=== PATIENT | female | born 1960 | race African-American/Black ===

== ENCOUNTER 2017-01-14 16:51 | Emergency (ER) | payer OTHER ==
[~2017-01-14] VITALS: Ht 167.6 cm; Wt 103.0 kg
[~2017-01-14 16:51] MED LIST: ACETAMINOPHEN500 M3 ORAL; AZITHROMYCIN250 MG ORAL; BACTRIM-DS1 EA ORAL; CEPHALEXIN500 MG ORAL; FERROUS SULFAT325 MG ORAL; FUROSEMIDE20 M1 ORAL; IBUPROFEN600 MG ORAL; IBUPROFEN800 MG ORAL; KEFLEX500 MG ORAL; MACROBID100 MG ORAL; NAPROSYN500 M1 ORAL; NKM; NORCO 5-325 TA1 EACH ORAL; NORCO 5/3251 TAB GT; NYSTATIN15 G1 TP; ROBAXIN500 MG PO; TRAMADOL HCL50 MG ORAL; TYLENOL EXTRA500 MG ORAL; UNOBMED; VICODIN; VICODIN ES 7.51 EACH ORAL; vicodin
[2017-01-14 17:07] VITALS: BP 151/98
[2017-01-14] MEDS ORDERED: Albuterol ud Inhalation HHN ONE (17:30)
[2017-01-14] MEDS ORDERED: Ipratropium 0.02% Inh Soln 2.5ml UD HHN ONE (17:30)
[2017-01-14 17:55] LABS: LYMPHOCYTES % (AUTO) 18.5 % (20.0-45.0); MEAN CORPUSCULAR HEMOGLOBIN 28.1 PG (27.0-31.0); MEAN CORPUSCULAR HGB CONC 31.7 G/DL (32.0-36.0); MEAN CORPUSCULAR VOLUME 89 FL (80-99); MEAN PLATELET VOLUME 7.9 FL (6.5-10.1); MONOCYTES % (AUTO) 6.4 % (1.0-10.0); PLATELET COUNT 252 K/UL (150-450); RED BLOOD COUNT 3.69 M/UL (4.20-5.40); RED CELL DISTRIBUTION WIDTH 16.4 % (11.6-14.8); WHITE BLOOD COUNT 6.7 K/UL (4.8-10.8)
[2017-01-14 18:20] LABS: ALANINE AMINOTRANSFERASE 15 U/L (3-33); ALBUMIN/GLOBULIN RATIO 1.6 (1.0-2.7); ANION GAP 16 (5-15); ASPARTATE AMINO TRANSFERASE 23 U/L (5-40); CALCIUM 9.5 mg/dL (8.6-10.2); CARBON DIOXIDE 26 mEQ/L (20-30); CHLORIDE 98 mEQ/L (98-107); CREATININE 0.6 mg/dL (0.5-0.9); GLOMERULAR FILTRATION RATE > 60 mL/min (>60); HEMOLYSIS 33; POTASSIUM 4.1 mEQ/L (3.4-4.9); SODIUM 140 mEQ/L (135-145); TOTAL PROTEIN 7.6 g/dL (6.6-8.7)
[2017-01-14 18:21] LABS: TROPONIN I < 0.30 ng/mL (<=0.30)
[2017-01-14] MEDS ORDERED: Ketorolac 30mg Inj IV ONE (18:30)
[2017-01-14 18:31] LABS: CKMB 5.6 ng/mL (< 3.8)
[2017-01-14 19:45] VITALS: BP 147/88
--- NOTE | 2017-01-14 22:40 | Emergency Room Report ---
History of Present Illness General Chief Complaint: Pain Source: Patient, EMS Present Illness HPI 56-year-old female presents ED complaining of generalized pain x2 days. Notes pain in the arms and legs and chest and hips. Pain is 8/10, throbbing, nonradiating. No aggravating or relieving factors. Patient is well-known to [facility] [place] has been here multiple times for pain-related issues. Has history of chronic hip pain. Patient states she's had multiple falls recently and is concerned about her hips. Patient states it is too painful to walk. Denies shortness of breath. No aggravating relieving factors. Denies any ear associated symptoms Allergies: Coded Allergies: NO KNOWN ALLERGIES (Unverified Allergy, Unknown, 08/21/15) NO KNOWN DRUG ALLERGIES (Unverified Allergy, Unknown, 02/11/15) Patient History Past Medical History: HTN Past Surgical History: none Pertinent Family History: none Social History: Denies: alcohol use, drug use, smoking Now: No Immunizations: UTD Reviewed Nursing Documentation: PMH: Agreed, PSxH: Agreed Nursing Documentation-PMH Hx Hypertension: Yes Hx Cancer: No Hx Neurological Problems: No Hx Cerebrovascular Accident: No - BILATERAL HIP PAIN Review of Systems All Other Systems: negative except mentioned in HPI Physical Exam Vital Signs Date Time Temp Pulse Resp B/P Pulse Ox O2 Delivery O2 Flow Rate FiO2 01/14/17 16:51 78 18 151/98 100 Room Air 01/14/17 19:45 98.6 Sp02 EP Interpretation: reviewed, normal General Appearance: no apparent distress, alert, GCS 15, non-toxic, obese Head: normocephalic Eyes: bilateral eye PERRL, bilateral eye normal inspection ENT: normal ENT inspection Neck: normal inspection Respiratory: chest non-tender, lungs clear, normal breath sounds, speaking full sentences Cardiovascular #1: regular rate, rhythm, no edema Gastrointestinal: normal bowel sounds, non tender, soft, non-distended, no guarding, no rebound Rectal: deferred Genitourinary: no CVA tenderness Musculoskeletal: tender - pelvis Neurologic: alert, oriented x3, responsive, motor strength/tone normal, sensory intact, speech normal Psychiatric: normal inspection Skin: normal inspection Lymphatic: normal inspection Medical Decision Making Diagnostic Impression: Primary Impression: Chronic pain Qualified Codes: G89.29 - Other chronic pain Additional Impression: Osteoarthritis, hip, bilateral Qualified Codes: M16.0 - Bilateral primary osteoarthritis of hip ER Course Hospital Course 56-year-old F presents to ED with chest and hip pain. h/o chronic hip pain Differential diagnosis includes-appendicitis, cholecystitis, small bowel obstruction, gastritis, Clinical course Patient placed on stretcher. After initial history and physical I ordered labs , IV fluids, EKG, CXR, pain medications and CT scan Labs - no leukocytosis, electrolytes ok, troponins negative, LFTs normal, UA unremarkable EKG - NSR, no acute changes CXR unremarkable CT scan shows no acute fx, DJD noted Upon reassessment, patient states pain has improved. Given improvement in symptoms and lack of acute findings, I believe patient can be safely discharged to home. Patient agrees with plan I feel this is a highly complex case requiring extensive working including EKG/ Rhythm strip, Xray/CT/US, Blood/urine lab work, repeat exams while in ED, and administration of strong opiates/narcotics for pain control, admission to hospital or close patient follow up. Diagnosis - chronic pain, bilateral hip osteoarthritis Stable and discharged to home. Followup with PMD. Return to ED if symptoms recur or worsen Labs Test 01/14/17 17:30 White Blood Count 6.7 K/UL (4.8-10.8) Red Blood Count 3.69 M/UL (4.20-5.40) Hemoglobin 10.4 G/DL (12.0-16.0) Hematocrit 32.8 % (37.0-47.0) Mean Corpuscular Volume 89 FL (80-99) Mean Corpuscular Hemoglobin 28.1 PG (27.0-31.0) Mean Corpuscular Hemoglobin Concent 31.7 G/DL (32.0-36.0) Red Cell Distribution Width 16.4 % (11.6-14.8) Platelet Count 252 K/UL (150-450) Mean Platelet Volume 7.9 FL (6.5-10.1) Neutrophils (%) (Auto) 71.0 % (45.0-75.0) Lymphocytes (%) (Auto) 18.5 % (20.0-45.0) Monocytes (%) (Auto) 6.4 % (1.0-10.0) Eosinophils (%) (Auto) 2.0 % (0.0-3.0) Basophils (%) (Auto) 2.0 % (0.0-2.0) Sodium Level 140 mEQ/L (135-145) Potassium Level 4.1 mEQ/L (3.4-4.9) Chloride Level 98 mEQ/L (98-107) Carbon Dioxide Level 26 mEQ/L (20-30) Anion Gap 16 (5-15) Blood Urea Nitrogen 12 mg/dL (7-23) Creatinine 0.6 mg/dL (0.5-0.9) Estimat Glomerular Filtration Rate > 60 mL/min (>60) Glucose Level 114 mg/dL (74-106) Calcium Level 9.5 mg/dL (8.6-10.2) Total Bilirubin < 0.2 mg/dL (0.0-1.2) Aspartate Amino Transf (AST/SGOT) 23 U/L (5-40) Alanine Aminotransferase (ALT/SGPT) 15 U/L (3-33) Alkaline Phosphatase 110 U/L (35-104) Total Creatine Kinase 287 U/L (26-140) Creatine Kinase MB 5.6 ng/mL (< 3.8) Creatine Kinase MB Relative Index 1.9 Troponin I < 0.30 ng/mL (<=0.30) Pro-B-Type Natriuretic Peptide 148 pg/mL (0-125) Total Protein 7.6 g/dL (6.6-8.7) Albumin 4.7 g/dL (3.5-5.2) Globulin 2.9 g/dL Albumin/Globulin Ratio 1.6 (1.0-2.7) EKG Diagnostic Results Rate: normal Rhythm: NSR ST Segments: no acute changes ASA given to the pt in ED: No Rhythm Strip Diag. Results EP Interpretation: yes Rhythm: NSR, no PVC's, no ectopy Chest X-Ray Diagnostic Results EP Interpretation: Yes Findings: no consolidation, no effusion, no pneumothorax, no acute cardiopulmonary disease Number of Views: 1 CT/MRI/US Diagnostic Results CT/MRI/US Diagnostic Results : Imaging Test Ordered: CT Pelvis Impression DJD noted bilaterally. no acute fx Last Vital Signs Date Time Temp Pulse Resp B/P Pulse Ox O2 Delivery O2 Flow Rate FiO2 01/14/17 19:45 89 22 147/88 100 Room Air 01/14/17 19:45 98.6 Status: improved Disposition: HOME, SELF-CARE Condition: Stable Referrals: [facility] (PCP) Patient Instructions: Hip Pain LARRY SOSA M.D. Jan 14, 2017 22:40
--- NOTE | 2017-01-15 08:33 | Diagnostic Imaging Report ---
Indication: PAIN Technique: Noncontrast spiral acquisitions obtained through the pelvis. Multiplanar reconstructions generated. Total dose length product 596 mGycm. CTDIvol(s) 19 mGy Comparison: Plain radiographs dated 07/16/2016. Right head CT 06/04/2015, pelvic CT 03/17/2015 Findings: There are severe degenerative changes of the right hip joint, with obliteration of the joint space, vacuum formation, subchondral cysts, subchondral sclerosis, and its sensitive proliferative change. There are less extensive degenerative changes of the left hip joint, with superior joint space narrowing and degenerative proliferative change, as well as some subchondral cysts. There are mild degenerative changes of sacroiliac joints. No acute fractures. No dislocations. Metallic foreign body projects in the sigmoid colon lumen, likely ingested. When compared to the 06/04/2016 CT, the degenerative changes of the right hip have progressed, with greater space narrowing and proliferative change. The vacuum formation is new. Impression: Bilateral hip degenerative changes. That on the right is severe and progressive since an earlier study of 06/04/2015 No acute bony trauma Metallic foreign body, likely ingested This agrees with the preliminary interpretation provided overnight by Dr. Feliz The CT scanner at [facility] is accredited by the [employer] and the scans are performed using protocols designed to limit radiation exposure to as low as reasonably achievable to attain images of sufficient resolution adequate for diagnostic evaluation.
--- NOTE | 2017-01-15 10:34 | Diagnostic Imaging Report ---
Indication: SOB Technique: One view of the chest Comparison: 09/21/2016 Findings: The heart is borderline enlarged the lungs and pleural spaces are clear no significant interim change. Impression: Borderline cardiomegaly. No acute process
--- NOTE | 2017-01-18 17:04 | Cardiology Report ---
APPROVED REPORT EKG Measurement Heart [id number] Normal sinus rhythm Right atrial enlargement Nonspecific T wave abnormality Prolonged QT Abnormal ECG
== END 2017-01-14 19:56 | disposition home or self-care (01) ==
LOC: EDBD 16:51 → EMR 17:22
DX: M16.0 Bilateral primary osteoarthritis of hip (principal); G89.29 Other chronic pain; I10 Essential (primary) hypertension
CPT/HCPCS: 36415; 71010; 72192; 80053; 82550; 82553; 83880; 84484; 85025; 93005; 94640; 94664; 96374; 99284; J1885

== ENCOUNTER 2017-08-03 05:23 | Emergency (ER) | payer OTHER ==
[~2017-08-03] VITALS: Ht 167.6 cm; Wt 90.7 kg
[~2017-08-03 05:23] MED LIST changes: +QUETIAPINE FUMA25 MG ORAL
[2017-08-03 05:30] VITALS: BP 104/79
[2017-08-03] MEDS ORDERED: Ketorolac 60mg Inj IM ONE (05:30)
[2017-08-03] MEDS ORDERED: LIDOCAINE700 M1 TP (06:06)
[2017-08-03 06:31] VITALS: BP 104/79
--- NOTE | 2017-08-03 07:03 | Emergency Room Report ---
History of Present Illness General Chief Complaint: Pain Source: Patient Present Illness HPI Patient is a 57-year-old female presented after increased lower back pain and right hip pain. Patient states that she's never had similar symptoms in the past. She reports having increased difficulty with pain. She states that she was sleeping in bed at the time of onset. She denies any fever. She had not been noted to have any recent trauma. Patient been seen multiple times in the past for similar type symptoms. Allergies: Coded Allergies: NO KNOWN ALLERGIES (Unverified Allergy, Unknown, 08/21/15) NO KNOWN DRUG ALLERGIES (Unverified Allergy, Unknown, 02/11/15) Patient History Past Medical History: see triage record Now: No Reviewed Nursing Documentation: PMH: Agreed, PSxH: Agreed Nursing Documentation-PMH Past Medical History: No History, Except For Hx Hypertension: Yes Hx Cancer: No Hx Neurological Problems: No Hx Cerebrovascular Accident: No - BILATERAL HIP PAIN Review of Systems All Other Systems: negative except mentioned in HPI Physical Exam Vital Signs Date Time Temp Pulse Resp B/P (MAP) Pulse Ox O2 Delivery O2 Flow Rate FiO2 08/03/17 05:17 97.9 102 16 106/80 98 Room Air General Appearance: well appearing, no apparent distress, obese, Chronically Ill Head: normocephalic, atraumatic ENT: hearing grossly normal, normal voice Neck: full range of motion, supple Respiratory: no respiratory distress, speaking full sentences Gastrointestinal: normal inspection Musculoskeletal: back normal, no calf tenderness Neurologic: normal inspection, alert, oriented x3, responsive, technical manager III-XII nml as tested, motor strength/tone normal, normal gait Psychiatric: normal inspection, memory normal, mood/affect normal Skin: no rash Medical Decision Making Diagnostic Impression: Primary Impression: Chronic pain Additional Impression: Exacerbation of chronic back pain ER Course Patient presented her back pain. Differential diagnosis included but was not limited to herniated disc, cauda equina syndrome, abdominal aortic aneurysm, perforated ulcer, spinal epidural abscess, spinal stenosis, lumbar fracture, metastatic lesion, pyelonephritis. Patient's benign exam and does not appear to require any further imaging or laboratory testing at this time. Patient given Toradol for pain. Patient was also given lidocaine patch. She is given prescription for lidocaine patches. The patient was noted to have prior history of severe osteoarthritis to her hip. Patient is advised followup with her primary care physician for further evaluation and treatment. Last Vital Signs Date Time Temp Pulse Resp B/P (MAP) Pulse Ox O2 Delivery O2 Flow Rate FiO2 08/03/17 06:31 98 12 104/79 100 Room Air 08/03/17 05:30 97.7 Status: improved Disposition: HOME, SELF-CARE Condition: Stable Scripts Lidocaine (Lidocaine) 1 Each Adh..patch 700 MG TP DAILY, #10 PATCH Prov: Chris Kennedy 08/03/17 Referrals: [facility] (PCP) Patient Instructions: Arthritis, Chronic Pain Chris Kennedy Aug 03, 2017 07:03
== END 2017-08-03 06:30 | disposition home or self-care (01) ==
LOC: EDBD 05:23 → EMR 06:08
DX: M54.5 Low back pain (principal); M25.551 Pain in right hip; G89.29 Other chronic pain; I10 Essential (primary) hypertension
CPT/HCPCS: 96372; 99284

== ENCOUNTER 2017-12-22 12:28 | Emergency (ER) | payer OTHER ==
[~2017-12-22] VITALS: Ht 167.6 cm; Wt 90.7 kg
[~2017-12-22 12:28] MED LIST changes: +LIDOCAINE700 M1 TP
[2017-12-22 13:00] VITALS: BP 158/92
[2017-12-22] MEDS ORDERED: Albuterol ud Inhalation HHN ONE (14:15)
[2017-12-22] MEDS ORDERED: cefTRIAXone 1 GM in NS 55 ML IVPB ONE (14:15)
[2017-12-22] MEDS ORDERED: Ketorolac 30mg Inj IV ONE (14:15)
[2017-12-22 14:20] VITALS: BP 162/97
[2017-12-22] MEDS ORDERED: Ketorolac 60mg Inj IM ONE (14:45)
--- NOTE | 2017-12-22 15:07 | Diagnostic Imaging Report ---
Indication: Cough Technique: One view of the chest Comparison: 01/14/2017 Findings: The heart is enlarged. There is retrocardiac atelectasis. Lungs and pleural spaces are otherwise clear. No significant interim change Impression: Cardiomegaly. No acute process
[2017-12-22 15:12] LABS: APPEARANCE,URINE CLEAR; BILIRUBIN, URINE NEGATIVE (NEGATIVE); COLOR,URINE PALE YELLOW; GLUCOSE, URINE (UA) NEGATIVE (NEGATIVE); KETONES,URINE NEGATIVE (NEGATIVE); LEUKOCYTE ESTERASE ,URINE NEGATIVE (NEGATIVE); NITRITE,URINE NEGATIVE (NEGATIVE); PH,URINE 6 (4.5-8.0); PROTEIN,URINE NEGATIVE (NEGATIVE); UROBILINOGEN,URINE NORMAL MG/DL (0.0-1.0)
[2017-12-22 15:16] LABS: BASOPHILS % (AUTO) 2.4 % (0.0-2.0); EOSINOPHILS % (AUTO) 1.8 % (0.0-3.0); HEMATOCRIT 34.8 % (37.0-47.0); HEMOGLOBIN 12.1 G/DL (12.0-16.0); LYMPHOCYTES % (AUTO) 6.2 % (20.0-45.0); MEAN CORPUSCULAR VOLUME 92 FL (80-99); MONOCYTES % (AUTO) 9.6 % (1.0-10.0); NEUTROPHILS % (AUTO) 80.1 % (45.0-75.0); PLATELET COUNT 207 K/UL (150-450); RED BLOOD COUNT 3.77 M/UL (4.20-5.40); RED CELL DISTRIBUTION WIDTH 12.9 % (11.6-14.8); WHITE BLOOD COUNT 4.7 K/UL (4.8-10.8)
[2017-12-22 15:24] LABS: ANION GAP 4 mmol/L (5-15); BLOOD UREA NITROGEN 7 mg/dL (7-18); CARBON DIOXIDE 27 MMOL/L (21-32); CHLORIDE 100 MMOL/L (98-107); CREATININE 0.7 MG/DL (0.55-1.30); POTASSIUM 4.1 MMOL/L (3.5-5.1); SODIUM 131 MMOL/L (136-145)
[2017-12-22 15:29] LABS: ALANINE AMINOTRANSFERASE 22 U/L (12-78); ALBUMIN 3.8 G/DL (3.4-5.0); ALKALINE PHOSPHATASE 123 U/L (46-116); ASPARTATE AMINO TRANSFERASE 20 U/L (15-37); BILIRUBIN,TOTAL 0.2 MG/DL (0.2-1.0)
--- NOTE | 2017-12-22 15:42 | Emergency Room Report ---
History of Present Illness General Chief Complaint: Upper Respiratory Illness Source: Patient, EMS Present Illness HPI Patient states that she has a terrible cough for the past week. She states since to the point where she has pain all over her body. She states that she is coughing so much she urinates on herself. She has subjective fever and chills. She denies nausea or vomiting. She denies abdominal pain. She has no other complaints. Allergies: Coded Allergies: NO KNOWN ALLERGIES (Unverified Allergy, Unknown, 08/21/15) Patient History Past Medical History: HIV, other - Arthritis/chronic pain Social History: Denies: smoking, alcohol use, drug use Reviewed Nursing Documentation: PMH: Agreed, PSxH: Agreed Nursing Documentation-PMH Past Medical History: No History, Except For Hx Hypertension: Yes Hx Cancer: No Hx Dialysis: Yes - Not on dialysis anymore Hx Neurological Problems: No Hx Cerebrovascular Accident: No - BILATERAL HIP PAIN Review of Systems All Other Systems: negative except mentioned in HPI Physical Exam Vital Signs Date Time Temp Pulse Resp B/P (MAP) Pulse Ox O2 Delivery O2 Flow Rate FiO2 12/22/17 12:24 98.7 85 18 158/92 100 Room Air 98.8 Sp02 EP Interpretation: reviewed, normal General Appearance: no apparent distress, alert, GCS 15, non-toxic Head: normocephalic, atraumatic Eyes: bilateral eye normal inspection, bilateral eye PERRL ENT: hearing grossly normal, normal pharynx, no angioedema, normal voice Neck: full range of motion, supple/symm/no masses Respiratory: chest non-tender, no respiratory distress, no retraction, no accessory muscle use, rhonchi, speaking full sentences, wheezing, expiration Cardiovascular #1: regular rate, rhythm, no edema Gastrointestinal: normal bowel sounds, non tender, soft, non-distended, no guarding, no rebound Rectal: deferred Musculoskeletal: normal range of motion Neurologic: alert, oriented x3, responsive, motor strength/tone normal, sensory intact, speech normal Psychiatric: judgement/insight normal, memory normal, mood/affect normal, no suicidal/homicidal ideation Skin: normal color, no rash, warm/dry, well hydrated Medical Decision Making Diagnostic Impression: Primary Impression: Upper respiratory infection Additional Impressions: Bronchospasm Wheezing ER Course This patient has a clinical presentation consistent with bronchospasm related to URI. The patient has wheezing on exam and I suspect undiagnosed asthma given the severity of this. The patient was given albuterol via nebulizer. Unfortunately, the patient was a very difficult IV stick and an IV was not able to be obtained. . The patient was given albuterol and Atrovent nebulizer treatments. The patient was also given prednisone orally. The patient had significant improvement in subjective shortness of breath. The patient's lung exam improved significantly. I will also treat the patient with a course of antibiotics as this has been shown to improve the course of an asthma exacerbation. The patient was given close return precautions and followup instructions. Laboratory Tests Test 12/22/17 13:50 12/22/17 14:20 White Blood Count 4.7 K/UL (4.8-10.8) L Red Blood Count 3.77 M/UL (4.20-5.40) L Hemoglobin 12.1 G/DL (12.0-16.0) Hematocrit 34.8 % (37.0-47.0) L Mean Corpuscular Volume 92 FL (80-99) Mean Corpuscular Hemoglobin 32.1 PG (27.0-31.0) H Mean Corpuscular Hemoglobin Concent 34.7 G/DL (32.0-36.0) Red Cell Distribution Width 12.9 % (11.6-14.8) Platelet Count 207 K/UL (150-450) Mean Platelet Volume 8.1 FL (6.5-10.1) Neutrophils (%) (Auto) 80.1 % (45.0-75.0) H Lymphocytes (%) (Auto) 6.2 % (20.0-45.0) L Monocytes (%) (Auto) 9.6 % (1.0-10.0) Eosinophils (%) (Auto) 1.8 % (0.0-3.0) Basophils (%) (Auto) 2.4 % (0.0-2.0) H Sodium Level 131 MMOL/L (136-145) L Potassium Level 4.1 MMOL/L (3.5-5.1) Chloride Level 100 MMOL/L (98-107) Carbon Dioxide Level 27 MMOL/L (21-32) Anion Gap 4 mmol/L (5-15) L Blood Urea Nitrogen 7 mg/dL (7-18) Creatinine 0.7 MG/DL (0.55-1.30) Estimate Glomerular Filtration Rate > 60 mL/min (>60) Glucose Level 94 MG/DL (74-106) Calcium Level 9.0 MG/DL (8.5-10.1) Total Bilirubin 0.2 MG/DL (0.2-1.0) Aspartate Amino Transferase (AST) 20 U/L (15-37) Alanine Aminotransferase (ALT) 22 U/L (12-78) Alkaline Phosphatase 123 U/L (46-116) H Total Protein 7.6 G/DL (6.4-8.2) Albumin 3.8 G/DL (3.4-5.0) Globulin 3.8 g/dL Albumin/Globulin Ratio 1.0 (1.0-2.7) Urine Color Pale yellow Urine Appearance Clear Urine pH 6 (4.5-8.0) Urine Specific [place] 1.010 (1.005-1.035) Urine Protein Negative (NEGATIVE) Urine Glucose (UA) Negative (NEGATIVE) Urine Ketones Negative (NEGATIVE) Urine Occult Blood Negative (NEGATIVE) Urine Nitrite Negative (NEGATIVE) Urine Bilirubin Negative (NEGATIVE) Urine Urobilinogen Normal MG/DL (0.0-1.0) Urine Leukocyte Esterase Negative (NEGATIVE) Microbiology Date/Time Source Procedure Growth Status 12/22/17 15:00 Nasal Nares Influenza Types A,B Antigen (CARLOS) - Final Complete EKG Diagnostic Results Rate: normal Rhythm: NSR ST Segments: no acute changes Rhythm Strip Diag. Results EP Interpretation: yes Rate: 80's Rhythm: NSR, no PVC's, no ectopy Chest X-Ray Diagnostic Results Chest X-Ray Diagnostic Results : Chest X-Ray Ordered: Yes # of Views/Limited/Complete: 1 View Indication: Other - cough EP Interpretation: No Interpretation: no consolidation, no effusion, no pneumothorax, no acute cardiopulmonary disease, other - cardiomegaly Impression: No acute disease Electronically Signed by: Jonh Last Vital Signs Date Time Temp Pulse Resp B/P (MAP) Pulse Ox O2 Delivery O2 Flow Rate FiO2 12/22/17 15:19 98.7 12/22/17 12:24 85 18 158/92 100 Room Air Disposition: HOME, SELF-CARE Condition: Improved Referrals: [facility] (PCP) Patient Instructions: Upper Respiratory Infection, Adult KALYN DURAND D.O. Dec 22, 2017 15:42
[2017-12-22] MEDS ORDERED: PREDNISONE20 MG ORAL (15:44)
[2017-12-22] MEDS ORDERED: ALBUTEROL SULF8.5 GM INH (15:44)
[2017-12-22] MEDS ORDERED: ZITHROMAX250 MG ORAL (15:44)
[2017-12-22] MEDS ORDERED: GUAIFENESIN-CO118 M1 ORAL (15:44)
[2017-12-22 16:45] VITALS: BP 142/89
--- NOTE | 2017-12-24 17:35 | Cardiology Report ---
APPROVED REPORT EKG Measurement Heart [id number] MI [id number] [id number] Normal sinus rhythm Possible Left atrial enlargement Cannot rule out Anterior infarct, age undetermined Abnormal ECG
== END 2017-12-22 16:47 | disposition home or self-care (01) ==
LOC: EDBD 12:28 → EMR 13:24
DX: J06.9 Acute upper respiratory infection, unspecified (principal); J98.01 Acute bronchospasm; I10 Essential (primary) hypertension; M19.90 Unspecified osteoarthritis, unspecified site; G89.29 Other chronic pain; R06.2 Wheezing
CPT/HCPCS: 36415; 71045; 80053; 81003; 85025; 86710; 87040; 93005; 94640; 94664; 96372; 99283; J7512

== ENCOUNTER 2018-07-20 16:52 | Emergency (ER) | payer OTHER ==
[~2018-07-20] VITALS: Ht 160 cm; Wt 68.0 kg
[~2018-07-20 16:52] MED LIST changes: +ALBUTEROL SULF8.5 GM INH; +GUAIFENESIN-CO118 M1 ORAL; +PREDNISONE20 MG ORAL; +ZITHROMAX250 MG ORAL
[2018-07-20] MEDS ORDERED: Haloperidol 5mg/ml Inj IM ONE (17:30)
[2018-07-20] MEDS ORDERED: DiphenhydrAMINE 50mg/ml Inj IM ONE (17:30)
[2018-07-20 18:24] VITALS: BP 129/89
--- NOTE | 2018-07-20 22:03 | Emergency Room Report ---
History of Present Illness General Chief Complaint: Alcohol Intoxication Source: Patient Present Illness HPI 58-year-old female presents to the emergency department brought by ambulance for alcohol intoxication. Patient reports that she is fine she denies pain she states that she is upset because the ambulance for her to the emergency department. Patient denies trauma or fall she denies abdominal pain, tenderness , nausea, vomiting, fevers or chills. Patient denies dizziness, chest pain, difficulty breathing or shortness of breath. Patient reports she was just discharged from an ER recently where she had a full workup performed. Patient reports that she is currently in transition as far as housing. History and review of symptoms gums are limited due to patient being a poor historian and she also is difficult to keep on task with conversations. Patient is angry and yelling. Denies SI/HI or drug use. Pt. admits to ETOH use this afternoon. Is poorly cooperative. Allergies: Coded Allergies: NO KNOWN ALLERGIES (Unverified Allergy, Unknown, 08/21/15) Patient History Past Medical History: see triage record Past Surgical History: none Pertinent Family History: none Social History: Reports: alcohol use Now: No Reviewed Nursing Documentation: PMH: Agreed; PSxH: Agreed Nursing Documentation-PMH Past Medical History: No History, Except For Hx Hypertension: Yes Hx Cancer: No Hx Dialysis: Yes - Not on dialysis anymore Hx Neurological Problems: No Hx Cerebrovascular Accident: No - BILATERAL HIP PAIN Review of Systems All Other Systems: limited - poor cooperation. Physical Exam Vital Signs Date Time Temp Pulse Resp B/P (MAP) Pulse Ox O2 Delivery O2 Flow Rate FiO2 07/20/18 16:49 Room Air 07/20/18 18:24 [id number] 89 20 129/89 98 211.1 Sp02 EP Interpretation: reviewed, normal General Appearance: no apparent distress, alert, GCS 15, non-toxic Head: normocephalic, atraumatic Eyes: bilateral eye normal inspection, bilateral eye PERRL ENT: hearing grossly normal, normal voice Neck: full range of motion, no bony tend Respiratory: chest non-tender, lungs clear, normal breath sounds, speaking full sentences Cardiovascular #1: regular rate, rhythm Gastrointestinal: non tender, soft Musculoskeletal: back normal, gait/station normal, normal range of motion, non- tender Neurologic: alert, oriented x3, responsive, motor strength/tone normal, sensory intact, normal gait, speech normal, grossly normal Psychiatric: no suicidal/homicidal ideation, other - pt. is agitated about EMS treatment, alert talking/yelling, and angry Skin: normal color, no rash, warm/dry, well hydrated Medical Decision Making PA Attestation Dr. Kennedy is my supervising Physician whom patient management has been discussed with. Diagnostic Impression: Primary Impression: Acute alcoholic intoxication Qualified Codes: F10.929 - Alcohol use, unspecified with intoxication, unspecified ER Course 58-year-old female presents to the emergency department brought by ambulance for alcohol intoxication. Patient reports that she is fine she denies pain she states that she is upset because the ambulance for her to the emergency department. Patient denies trauma or fall she denies abdominal pain, tenderness , nausea, vomiting, fevers or chills. Patient denies dizziness, chest pain, difficulty breathing or shortness of breath. Patient reports she was just discharged from an ER recently where she had a full workup performed. Patient reports that she is currently in transition as far as housing. History and review of symptoms gums are limited due to patient being a poor historian and she also is difficult to keep on task with conversations. Patient is angry and yelling. Denies SI/HI or drug use. Pt. admits to ETOH use this afternoon. Pt. presents to the ED intoxicated with alcohol, pt. is NAD, pt. is alert, no obvious signs of trauma, able to ambulate to chair. Ddx considered but are not limited to ETOH, Trauma, Syncope, dementia, OD Vital signs: are WNL, pt. is afebrile H&PE are most consistent with ETOH abuse. ORDERS: none required at this time ED INTERVENTIONS: Observance. Haldol IM and Benadryl IM Pt. was allowed to rest. She continues to be upset and wants to be d/c'd. Pt. continues to be A & O x 4 DISCHARGE: At this time pt. is stable for d/c to home. Will provide printed patient care instructions, and any necessary prescriptions. Care plan and follow up instructions have been discussed with the patient prior to discharge. Last Vital Signs Date Time Temp Pulse Resp B/P (MAP) Pulse Ox O2 Delivery O2 Flow Rate FiO2 07/20/18 18:24 99.5 89 20 129/89 98 Room Air 99.5 Disposition: HOME, SELF-CARE Condition: Stable Referrals: [facility] ([facility]P) Patient Instructions: Alcohol Abuse and Nutrition, Alcohol Intoxication, Easy- to-Read Additional Instructions: Take medications as directed. Follow up with a Primary Care Provider in 3-5 days, even if your symptoms have resolved. --Please review list of primary care clinics, if you do not already have a primary care provider Return sooner to ED if new symptoms occur, or current symptoms become worse. - Please note that this Emergency Department Report was dictated using [employer] tractor operator technology software, occasionally this can lead to erroneous entry secondary to interpretation by the dictation equipment. Milagros Rios Jul 20, 2018 22:03
== END 2018-07-20 18:25 | disposition home or self-care (01) ==
LOC: EDBD 16:52 → EMR 18:14
DX: F10.129 Alcohol abuse with intoxication, unspecified (principal); I10 Essential (primary) hypertension
CPT/HCPCS: 80307; 96372; 99283; J1200; J1630

== ENCOUNTER 2018-09-21 01:57 | Emergency (ER) | payer OTHER ==
[~2018-09-21] VITALS: Ht 167.6 cm; Wt 90.7 kg
[2018-09-21 01:56] VITALS: BP 160/63
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
[2018-09-21] MEDS ORDERED: Acetaminophen 500mg (ES) tab ORAL ONE (02:15)
[2018-09-21] MEDS ORDERED: TYLENOL EXTRA500 MG ORAL (02:35)
[2018-09-21 04:10] VITALS: BP 143/71
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
== END 2018-09-21 04:18 | disposition home or self-care (01) ==
LOC: EDBD 01:57 → EMR 02:15
DX: M16.11 Unilateral primary osteoarthritis, right hip (principal); G89.29 Other chronic pain
CPT/HCPCS: 72192; 99284

== ENCOUNTER 2019-05-07 14:19 | Emergency (ER) | payer OTHER ==
[~2019-05-07] VITALS: Ht 167.6 cm; Wt 90.7 kg
[2019-05-07] MEDS ORDERED: Ketorolac 60mg Inj IM ONE ×2 (14:45→15:03)
[2019-05-07] MEDS: Morphine Sulfate 2mg/ml Inj(IV/IM USE ONLY) IM ONE ×2 (14:55→15:00)
[2019-05-07] MEDS ORDERED: Ketorolac 30mg Inj ONE (14:58)
[2019-05-07] MEDS ORDERED: Morphine Sulfate 2mg/ml Inj(IV/IM USE ONLY) ONE (14:58)
--- NOTE | 2019-05-07 15:10 | NUR ---
ED Nurse Note: pt to ct scan. states [facility] did not bring her cane in with her. pt amb slowly without it. new socks given to pt. pt ok to have po intake aslo. tolerates meds givne well
--- NOTE | 2019-05-07 15:19 | Diagnostic Imaging Report ---
Indications: Pain, status post fall Technique: Spiral acquisitions obtained through the lumbar spine. Multiplanar reconstructions were generated. No IV contrast utilized. Total dose length product 782.49 mGycm. CTDIvol(s) 26.27 mGy. Dose reduction achieved using automated exposure control Comparison: none Findings: There is transitional anatomy, with a transitional S1 segment and 5 lumbar-type nonrib-bearing vertebral bodies. No acute fractures. No dislocations. There is slight scoliotic deformity which is probably an artifact of positioning. Bony alignment is otherwise normal. Vertebral body heights are preserved. Disc spaces are preserved There is facet arthrosis on the right at L1-2, bilaterally at T12-L1. No significant disc bulge or protrusion, spinal stenosis, or neural foraminal stenosis at these levels. At L3-4, circumferential annular bulge and short pedicles result in mild narrowing of the spinal canal. The neural foramina are preserved. There is bilateral facet arthrosis. At L4-5, circumferential annular bulge, ligamentum flavum and facet hypertrophy, short pedicles result in moderate spinal canal stenosis. The neural foramina are preserved. There is bilateral facet arthrosis At L5-S1, circumferential annular bulge and facet and ligamentum flavum hypertrophy result in mild narrowing of the spinal canal. There is bilateral facet arthrosis at this level. At the remaining disc levels, no significant disc bulge or protrusion, spinal stenosis, or neural foraminal stenosis. The included extra spinal soft tissues are unremarkable. Impression: No acute bony trauma Multilevel degenerative changes, as detailed above, including areas of spinal stenosis which is most severe at L4-[address] scanner at [facility] is accredited by the [employer] and the scans are performed using protocols designed to limit radiation exposure to as low as reasonably achievable to attain images of sufficient resolution adequate for diagnostic evaluation.
--- NOTE | 2019-05-07 15:34 | Diagnostic Imaging Report ---
Indication: Pain status post fall Technique: One view the pelvis, 2 views of the left hip Comparison: 07/16/2016 Findings: There is degenerative narrowing of the left hip joint. There is degenerative remodeling of the femoral head and proliferative change of the acetabulum. There is severe degenerative narrowing of the right hip joint, with marked degenerative remodeling of the acetabulum and femoral head, subchondral sclerosis, and degenerative proliferative change change. There is a semicircular lucency of the left femoral head which appears similar to the previous exam. No acute fractures. No dislocations. Impression: No acute bony trauma Marked degenerative changes, as described This agrees with the preliminary interpretation provided overnight by [facility].
[2019-05-07] MEDS ORDERED: IBUPROFEN600 MG ORAL (16:01)
[2019-05-07] MEDS ORDERED: ACETAMINOPHEN-1 EAC1 ORAL (16:01)
--- NOTE | 2019-05-07 16:29 | NUR ---
ED Nurse Note:attempting to call [facility] to inquire for pts cane to dc her home. pt can ambulate but states is very hard for her.pt relates a little relief from meds given. no new s/s
--- NOTE | 2019-05-07 16:41 | NUR ---
ED Nurse Note:per [facility] pt cane left at her home. cane provided here to assist pt in being able to ambulate out of ed.
[2019-05-07 16:57] VITALS: BP 134/97
[2019-05-07 16:59] VITALS: BP 134/97
--- NOTE | 2019-05-07 16:59 | NUR ---
ER DISCHARGE NOTE: Patient is cleared to be discharged per ERMD, pt is aox4, on room air, with stable vital signs. pt was given dc and prescription instructions, pt was able to verbalize understanding, pt id band removed without complications. pt is able to ambulate with steady gait with cane provided pt took all belongings.
--- NOTE | 2019-05-07 21:25 | Emergency Room Report ---
History of Present Illness General Chief Complaint: Multiple Trauma/Fall Source: Patient, EMS Present Illness HPI The patient is a 58-year-old female brought in by ambulance for pain after fall last night. She states that she was in the bathtub, slipped, and fell onto her buttocks. She denies hitting her head or loss of consciousness. Pain is now a 10 out of 10 dull ache primarily to the left hip. Worse with movement. She denies taking any pain medications for this. She denies other symptoms including headache, dizziness, blurred vision, neck pain, chest pain, shortness of breath, numbness or tingling, incontinence Allergies: Coded Allergies: NO KNOWN ALLERGIES (Unverified Allergy, Unknown, 08/21/15) Patient History Past Medical History: see triage record Pertinent Family History: none Reviewed Nursing Documentation: PMH: Agreed; PSxH: Agreed Nursing Documentation-PMH Past Medical History: No History, Except For Hx Hypertension: Yes Hx Cancer: No Hx Dialysis: Yes - Not on dialysis anymore Hx Neurological Problems: No Hx Cerebrovascular Accident: No - BILATERAL HIP PAIN Review of Systems All Other Systems: negative except mentioned in HPI Physical Exam Vital Signs Date Time Temp Pulse Resp B/P (MAP) Pulse Ox O2 Delivery O2 Flow Rate FiO2 05/07/19 14:16 98.6 70 19 154/53 (86) 98 05/07/19 16:59 Room Air Sp02 EP Interpretation: reviewed, normal General Appearance: no apparent distress, alert, GCS 15, non-toxic Head: normocephalic, atraumatic Neck: full range of motion, supple/symm/no masses Respiratory: chest non-tender, lungs clear, normal breath sounds, no wheezing, speaking full sentences Cardiovascular #1: regular rate, rhythm, no edema Gastrointestinal: normal bowel sounds, non tender, soft, non-distended, no guarding, no rebound Genitourinary: normal inspection, no CVA tenderness Musculoskeletal: back normal, gait/station normal, normal range of motion, non- tender Neurologic: alert, oriented x3, responsive, motor strength/tone normal, sensory intact, speech normal, abnormal gait - slow with cane, grossly normal Psychiatric: judgement/insight normal, memory normal, mood/affect normal, no suicidal/homicidal ideation Skin: no rash Medical Decision Making PA Attestation Dr. Dobbs is my supervising physician. Patient management was discussed with my supervising physician Diagnostic Impression: Primary Impression: Degenerative arthritis of hip Qualified Codes: M16.0 - Bilateral primary osteoarthritis of hip Additional Impressions: Contusion, hip Qualified Codes: S70.02XA - Contusion of left hip, initial encounter Fall Qualified Codes: W19.XXXA - Unspecified fall, initial encounter ER Course Patient is a 58-year-old female presenting for hip pain after fall Ddx considered include but not limited to sprain/strain, fracture, contusion Physical exam: Vitals stable There is tenderness to palpation over the left hip. No deformity. No ecchymosis. No leg length discrepancy. Patient walks with slow gait which is same as before injury. There is tenderness to palpation over the left shoulder. No deformity. Full active range of motion intact. Sensation is intact to light touch. Ecchymosis CT of L-spine and x-rays of shoulder, hip/pelvis show no acute findings. There is severe degenerative changes Patient informed of results She is given pain medication and is feeling better. She is able to ambulate well before discharge. She is discharged home with prescription for pain medication and is told to follow-up with her primary doctor soon as possible. ER precautions are given Other X-Ray Diagnostic Results Other X-Ray Diagnostic Results #1: X-Ray ordered: L hip/pelvis # of Views/Limited Vs Complete: 3 View, Complete Indication: Pain EP Interpretation: Yes PA Xray: Interpretation reviewed, by supervising MD, and agrees with findings. Interpretation: no dislocation, no soft tissue swelling, no fractures Impression: No acute disease Electronically Signed by: Mariano Cooper PA-C Other X-Ray Diagnostic Results #2: X-Ray ordered: L shoulder # of Views/Limited Vs Complete: 3 View, Complete Indication: Pain EP Interpretation: Yes PA Xray: Interpretation reviewed, by supervising MD, and agrees with findings. Interpretation: no dislocation, no soft tissue swelling, no fractures Impression: No acute disease Electronically Signed by: Mariano Cooper PA-C CT/MRI/US Diagnostic Results CT/MRI/US Diagnostic Results : Imaging Test Ordered: CT L spine Impression No acute findings. No fractures Last Vital Signs Date Time Temp Pulse Resp B/P (MAP) Pulse Ox O2 Delivery O2 Flow Rate FiO2 05/07/19 16:59 98.6 80 19 134/97 98 Room Air Status: improved Disposition: HOME, SELF-CARE Condition: Improved Scripts Acetaminophen With Codeine (T#3) (TYLENOL #3 TAB*) Y Tab 1 TAB ORAL Q6HR PRN for For Pain, #8 TAB Prov: MARIANO COOPER 05/07/19 Ibuprofen* (MOTRIN*) 600 Mg Tablet 600 MG ORAL Q8H PRN for For Pain, #30 TAB 0 Refills Prov: MARIANO COOPER 05/07/19 Referrals: [facility],REFERR[facility] (PCP) Patient Instructions: Arthritis Additional Instructions: I discussed my findings with the patient. All questions and concerns have been answered. Treatment and medication compliance have been addressed. I advised the patient that they need to follow up with primary doctor within 3 days. Return to ER if pain remains or worsens, numbness or tingling occurs, new rash is noticed, fever is noticed, or if needed for any reason. Patient verbalized understanding of discharge instructions. MARIANO COOPER May 07, 2019 21:25
--- NOTE | 2019-05-08 12:26 | Diagnostic Imaging Report ---
Indication: Left shoulder pain, status post fall Technique: 3 views of the left shoulder Comparison: none Findings: No acute fractures. No dislocations. The joint spaces are preserved Impression: Negative
== END 2019-05-07 16:57 | disposition home or self-care (01) ==
LOC: EDBD 14:19 → EMR 14:51
DX: M16.0 Bilateral primary osteoarthritis of hip (principal); S70.02XA Contusion of left hip, initial encounter; W18.2XXA Fall in (into) shower or empty bathtub, initial encounter; Y92.9 Unspecified place or not applicable; I10 Essential (primary) hypertension
CPT/HCPCS: 72131; 73030; 73502; 96372; 99284; J2270

== ENCOUNTER 2019-08-14 17:14 | Emergency (ER) | payer OTHER ==
[~2019-08-14] VITALS: Ht 165.1 cm; Wt 78.0 kg
[~2019-08-14 17:14] MED LIST changes: +ACETAMINOPHEN-1 EAC1 ORAL
[2019-08-14] MEDS: Albuterol/Ipratropium 3ml neb HHN SCH ×3 (17:50→18:00)
--- NOTE | 2019-08-14 17:58 | NUR ---
ED Nurse Note:blood was sent to labs
[2019-08-14 18:11] LABS: HEMATOCRIT 31.8 % (37.0-47.0); HEMOGLOBIN 10.7 G/DL (12.0-16.0); MEAN CORPUSCULAR VOLUME 87 FL (80-99); PLATELET COUNT 77 K/UL (150-450); RED BLOOD COUNT 3.67 M/UL (4.20-5.40); RED CELL DISTRIBUTION WIDTH 12.8 % (11.6-14.8); WHITE BLOOD COUNT 8.2 K/UL (4.8-10.8)
[2019-08-14 18:28] LABS: ANION GAP 9 mmol/L (5-15); BLOOD UREA NITROGEN 16 mg/dL (7-18); CALCIUM 8.6 MG/DL (8.5-10.1); CARBON DIOXIDE 22 MMOL/L (21-32); CHLORIDE 105 MMOL/L (98-107); CREATININE 0.6 MG/DL (0.55-1.30); POTASSIUM 3.6 MMOL/L (3.5-5.1); SODIUM 136 MMOL/L (136-145)
[2019-08-14 18:44] LABS: ALANINE AMINOTRANSFERASE 20 U/L (12-78); ALBUMIN 3.3 G/DL (3.4-5.0); ALBUMIN/GLOBULIN RATIO 0.8 (1.0-2.7); ALKALINE PHOSPHATASE 134 U/L (46-116); ASPARTATE AMINO TRANSFERASE 18 U/L (15-37); BILIRUBIN,TOTAL 0.2 MG/DL (0.2-1.0)
--- NOTE | 2019-08-14 19:00 | NUR ---
ED Nurse Note:urine sent to labs
--- NOTE | 2019-08-14 19:05 | Emergency Room Report ---
History of Present Illness General Chief Complaint: Upper Respiratory Illness Source: EMS Present Illness HPI 59-year-old female with history of anxiety and heavy tobacco smoke as well as urinary incontinence here complaining of 1 week of cough and congestion with phlegm production. Patient also reports that she has developed more urinary incontinence and frequency posttussive. Denies fever and chills, chest pain, shortness of breath and palpitation. Patient appears to have wheezing diffusely. Reports that she smokes cigarettes on a daily basis. Denies any abdominal pain, nausea vomiting. Also reports pruritus and pain on underneath both breasts x1 week. Cellulitis is noted bilateral breast folds. Complains of vaginal discharge however denies any sexually active taken medication for symptom relief. Allergies: Coded Allergies: NO KNOWN ALLERGIES (Unverified Allergy, Unknown, 08/21/15) Patient History Past Medical History: see triage record Past Surgical History: unable to obtain Pertinent Family History: unable to obtain Social History: Reports: smoking Now: No Immunizations: UTD Reviewed Nursing Documentation: PMH: Agreed; PSxH: Agreed Nursing Documentation-PMH Hx Hypertension: Yes Hx Cancer: No Hx Dialysis: Yes - Not on dialysis anymore Hx Neurological Problems: No Hx Cerebrovascular Accident: No - BILATERAL HIP PAIN Review of Systems All Other Systems: negative except mentioned in HPI Physical Exam Vital Signs Date Time Temp Pulse Resp B/P (MAP) Pulse Ox O2 Delivery O2 Flow Rate FiO2 08/14/19 17:18 98.2 84 20 157/82 (107) 98 Room Air 08/14/19 17:50 21 Sp02 EP Interpretation: reviewed, normal General Appearance: no apparent distress, alert, GCS 15, non-toxic Head: normocephalic, atraumatic Eyes: bilateral eye normal inspection, bilateral eye PERRL ENT: hearing grossly normal, normal pharynx, no angioedema, normal voice Neck: full range of motion, supple, no meningismus, no bony tend, no carotid bruits, supple/symm/no masses Respiratory: chest non-tender, no rhonchi, no respiratory distress, no retraction, no accessory muscle use, speaking full sentences, wheezing Cardiovascular #1: regular rate, rhythm, no edema, no murmur Gastrointestinal: normal bowel sounds, non tender, soft, no mass Genitourinary: no CVA tenderness Musculoskeletal: back normal, digits/nails normal, gait/station normal, non- tender, no calf tenderness Neurologic: normal inspection, alert, oriented x3, responsive, 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 Alegria Diagnostic Impression: Primary Impression: Atypical pneumonia Additional Impressions: UTI (urinary tract infection) Cellulitis of breast Cocaine abuse ER Course 59-year-old female with history of anxiety and heavy tobacco smoke as well as urinary incontinence here complaining of 1 week of cough and congestion with phlegm production. Patient also reports that she has developed more urinary incontinence and frequency posttussive. Denies fever and chills, chest pain, shortness of breath and palpitation. Patient appears to have wheezing diffusely. Reports that she smokes cigarettes on a daily basis. Denies any abdominal pain, nausea vomiting. Also reports pruritus and pain on underneath both breasts x1 week. Cellulitis is noted bilateral breast folds. Complains of vaginal discharge however denies any sexually active taken medication for symptom relief. Ddx considered but are not limited to: bronchitis, PNA, URI viral, bacterial bronchitis Vital signs: are WNL, pt. is afebrile H&PE are most consistent with: Atypical pneumonia, UTI, cellulitis of bilateral breasts ORDERS: Chest x-ray, EKG, CBC, CMP, UA, tox screen, doxycycline to cover possible chlamydia and gonorrhea and cellulitis, Phenergan, albuterol inhaler ED INTERVENTIONS: 3 treatments of DuoNeb DISCHARGE: At this time pt. is stable for d/c to home. Will provide printed patient care instructions, and any necessary prescriptions. Care plan and follow up instructions have been discussed with the patient prior to discharge. Patient to follow-up with her primary care provider and if worsening symptoms return to the emergency room EKG Diagnostic Results Rate: normal Rhythm: NSR ST Segments: no acute changes Other Impression No acute ST changes Chest X-Ray Diagnostic Results Chest X-Ray Diagnostic Results : Chest X-Ray Ordered: Yes # of Views/Limited/Complete: 1 View Indication: Shortness of Breath EP Interpretation: Yes CHELSI Xray: Interpretation reviewed, by supervising MD, and agrees with findings. Interpretation: no effusion, no pneumothorax, no acute cardiopulmonary disease Impression: Other - Atypical pneumonia Electronically Signed by: Florentino Del Rosario PA-C Last Vital Signs Date Time Temp Pulse Resp B/P (MAP) Pulse Ox O2 Delivery O2 Flow Rate FiO2 08/14/19 17:50 89 22 97 Room Air 21 08/14/19 17:18 98.2 157/82 (107) Disposition: HOME, SELF-CARE Condition: Stable Scripts Albuterol Sulfate (VENTOLIN HFA) 18 Gm Hfa.aer.ad 2 PUFFS INH EVERY 6 HOURS, #18 GM 0 Refills Prov: Florentino Alcala 08/14/19 Promethazine Hcl (PROMETHAZINE HCL*) 6.25 Mg/5 Ml Syrup 5 ML ORAL Q6H, #120 ML 0 Refills Prov: Florentino Alcala 08/14/19 Doxycycline Hyclate (DOXYCYCLINE HYCLATE) 100 Mg Tablet 100 MG PO BID for 7 Days, #14 TAB Prov: Florentino Alcala 08/14/19 Patient Instructions: Cellulitis, Community-Acquired Pneumonia, Adult Additional Instructions: Take medication as directed, follow-up with your primary care provider, if worsening symptoms return to the emergency room. Avoid smoking. Florentino Alcala Aug 14, 2019 19:05
[2019-08-14 19:07] VITALS: BP 157/82
--- NOTE | 2019-08-14 19:08 | NUR ---
ED Nurse Note:pt. received breathing treatment
[2019-08-14] MEDS ORDERED: DOXYCYCLINE HY100 M6 PO (19:10)
[2019-08-14] MEDS ORDERED: PROMETHAZI6.25 MG/1 ORAL (19:10)
[2019-08-14] MEDS ORDERED: VENTOLIN HFA18 GM INH (19:10)
[2019-08-14 19:20] LABS: APPEARANCE,URINE CLEAR; BILIRUBIN, URINE NEGATIVE (NEGATIVE); COLOR,URINE PALE YELLOW; GLUCOSE, URINE (UA) NEGATIVE (NEGATIVE); KETONES,URINE NEGATIVE (NEGATIVE); LEUKOCYTE ESTERASE ,URINE NEGATIVE (NEGATIVE); NITRITE,URINE NEGATIVE (NEGATIVE); PH,URINE 6 (4.5-8.0); PROTEIN,URINE 2+ (NEGATIVE); UROBILINOGEN,URINE 1 MG/DL (0.0-1.0)
--- NOTE | 2019-08-14 19:20 | NUR ---
ER DISCHARGE NOTE: Patient is cleared to be discharged per ERMD, pt is aox4, on room air, with stable vital signs. pt was given dc and prescription instructions, pt was able to verbalize understanding, pt is able to ambulate with cane. pt took all belongings.
[2019-08-14 19:31] VITALS: BP 157/82
--- NOTE | 2019-08-15 10:07 | Diagnostic Imaging Report ---
Indication: Cough Technique: One view of the chest Comparison: 12/22/2017 Findings: Lungs and pleural spaces are clear. Heart size is normal. No significant interim change Impression: No acute process
== END 2019-08-14 19:31 | disposition home or self-care (01) ==
LOC: EDBD 17:14 → EMR 19:15
DX: J18.9 Pneumonia, unspecified organism (principal); N39.0 Urinary tract infection, site not specified; N61.0 Mastitis without abscess; F14.10 Cocaine abuse, uncomplicated; F17.200 Nicotine dependence, unspecified, uncomplicated; F41.9 Anxiety disorder, unspecified
CPT/HCPCS: 36415; 71045; 80053; 80307; 81001; 85007; 85025; 93005; 94640; 94664; Z7502; 99284; J7620

== ENCOUNTER 2019-09-11 05:50 | Emergency (ER) | payer OTHER ==
[~2019-09-11] VITALS: Ht 167.6 cm; Wt 90.7 kg
[~2019-09-11 05:50] MED LIST changes: +DOXYCYCLINE HY100 M6 PO; +PROMETHAZI6.25 MG/1 ORAL; +VENTOLIN HFA18 GM INH
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
[2019-09-11 06:07] VITALS: BP 140/86
--- NOTE | 2019-09-11 06:08 | NUR ---
ED Nurse Note: expiratory wheezes were auscultated bilaterally
[2019-09-11] MEDS ORDERED: PREDNISONE20 MG ORAL (06:09)
[2019-09-11] MEDS ORDERED: ALBUTEROL SULF8.5 GM INH (06:09)
[2019-09-11] MEDS ORDERED: LEVAQUIN500 MG ORAL (06:09)
--- NOTE | 2019-09-11 06:09 | Emergency Room Report ---
History of Present Illness General Chief Complaint: Female Urogenital Problems Source: Patient, Medical Record Present Illness HPI Is a 59-year-old female who is a smoker and also history of cocaine abuse. She presents with chief complaint of coughing and wheezing. This ongoing for over a month now. She was here a month ago for the same thing. She stated getting better. Coughing is nonproductive nature. Worse with smoking. Worse with exertion. No fever chills but no nausea no vomiting. Also complained of stress incontinence. Also said that her urine has a strong odor. No dysuria frequency. No discharge. No bleeding. Similar to previous episodes. Allergies: Coded Allergies: NO KNOWN ALLERGIES (Unverified Allergy, Unknown, 08/21/15) Patient History Past Medical History: see triage record, old chart reviewed Past Surgical History: other Pertinent Family History: none Social History: Reports: smoking, drug use Last Menstrual Period: unk Now: No Immunizations: other Reviewed Nursing Documentation: PMH: Agreed; PSxH: Agreed Nursing Documentation-PMH Hx Hypertension: Yes Hx Cancer: No Hx Dialysis: Yes - Not on dialysis anymore Hx Neurological Problems: No Hx Cerebrovascular Accident: No - BILATERAL HIP PAIN Review of Systems Eye: Denies: eye pain, blurred vision ENT: Denies: ear pain, nose congestion, throat swelling Respiratory: Reports: cough, shortness of breath, sputum Cardiovascular: Denies: chest pain, palpitations Gastrointestinal: Denies: abdominal pain, diarrhea, nausea, vomiting Musculoskeletal: Denies: back pain, joint pain Skin: Denies: rash Neurological: Denies: headache, numbness Endocrine: Denies: increased thirst, increased urine Hematologic/Lymphatic: Denies: easy bruising All Other Systems: negative except mentioned in HPI Physical Exam Vital Signs Date Time Temp Pulse Resp B/P (MAP) Pulse Ox O2 Delivery O2 Flow Rate FiO2 09/11/19 05:53 97.9 86 16 140/86 (104) 97 Room Air Vitals normal Sp02 EP Interpretation: reviewed, normal General Appearance: well appearing, no apparent distress, alert, obese Head: normocephalic, atraumatic Eyes: bilateral eye PERRL, bilateral eye EOMI ENT: hearing grossly normal, normal pharynx Neck: full range of motion, supple, no meningismus Respiratory: chest non-tender, wheezing - expiratory wheezing Cardiovascular #1: regular rate, rhythm, no murmur Gastrointestinal: normal bowel sounds, non tender, no mass, no organomegaly, no bruit, non-distended Musculoskeletal: back normal, normal range of motion, gait/station normal Psychiatric: mood/affect normal Medical Decision Making Diagnostic Impression: Primary Impression: COPD with exacerbation Additional Impressions: Cocaine abuse Stress incontinence in female ER Course Patient presents with symptoms consistent with COPD exacerbation. Worsened by smoking and cocaine abuse. Better after breathing treatment. No evidence of ACS, PE, dissection. We will put her on antibiotics because of risk factors. Last Vital Signs Date Time Temp Pulse Resp B/P (MAP) Pulse Ox O2 Delivery O2 Flow Rate FiO2 09/11/19 05:53 97.9 86 16 140/86 (104) 97 Room Air Status: improved Disposition: HOME, SELF-CARE Condition: Stable Scripts Prednisone* (PREDNISONE*) 20 Mg Tablet 40 MG ORAL DAILY, #8 TAB Prov: Reinier Vides MD 09/11/19 Levofloxacin* (LEVAQUIN*) 500 Mg Tablet 500 MG ORAL DAILY, #7 TAB Prov: Reinier Vides MD 09/11/19 Albuterol Sulfate* (ALBUTEROL SULFATE MDI*) 8.5 Gm Hfa.aer.ad 2 PUFF INH Q4H PRN for cough/wheezing, #1 EA 0 Refills Prov: Reinier Vides MD 09/11/19 Additional Instructions: Abstain from drugs and alcohol. Follow-up with your doctor in 7 days. Return if symptoms worsen. Reinier Vides MD Sep 11, 2019 06:09
[2019-09-11 06:14] VITALS: BP 139/82
[2019-09-11] MEDS ORDERED: Albuterol ud Inhalation HHN ONE (06:15)
[2019-09-11] MEDS ORDERED: Ipratropium 0.02% Inh Soln 2.5ml UD HHN ONE (06:15)
[2019-09-11 06:30] LABS: APPEARANCE,URINE CLEAR; BILIRUBIN, URINE NEGATIVE (NEGATIVE); COLOR,URINE PALE YELLOW; GLUCOSE, URINE (UA) NEGATIVE (NEGATIVE); KETONES,URINE NEGATIVE (NEGATIVE); LEUKOCYTE ESTERASE ,URINE NEGATIVE (NEGATIVE); NITRITE,URINE NEGATIVE (NEGATIVE); PH,URINE 5 (4.5-8.0); UROBILINOGEN,URINE NORMAL MG/DL (0.0-1.0)
--- NOTE | 2019-09-11 06:30 | NUR ---
ED Nurse Note: pt is currently on the phone during breathing treatments, able to speak full sentences. breathing seems to be even and unlabored. pending UA results, will continue to monitor
[2019-09-11 06:35] LABS: PROTEIN,URINE NEGATIVE (NEGATIVE)
[2019-09-11 06:55] VITALS: BP 139/82
--- NOTE | 2019-09-11 06:55 | NUR ---
ER DISCHARGE NOTE: Patient is cleared to be discharged per ERMD, pt is aox4, on room air, with stable vital signs. pt was given dc and prescription instructions, pt was able to verbalize understanding, pt id band removed without complications. pt is able to ambulate with steady gait. pt took all belongings.
== END 2019-09-11 06:55 | disposition home or self-care (01) ==
LOC: EDUNIT# 05:50 → EDBD 05:50 → EMR 06:24
DX: J44.1 Chronic obstructive pulmonary disease with (acute) exacerbation (principal); I10 Essential (primary) hypertension; F17.200 Nicotine dependence, unspecified, uncomplicated
CPT/HCPCS: 81003; 94640; 94664; J7512; Z7502; 99284

== ENCOUNTER 2020-02-17 11:25 | Emergency (ER) | payer OTHER ==
[~2020-02-17] VITALS: Ht 170.2 cm; Wt 81.6 kg
[2020-02-17 11:25] VITALS: BP 188/89
[~2020-02-17 11:25] MED LIST changes: +LEVAQUIN500 MG ORAL
--- NOTE | 2020-02-17 11:25 | NUR ---
ED Nurse Note: Patient BRAYDEN RA26 from home c/o SOB x couple days ago. Per pt, she was dx of PNA couple days ago. Denies chest pain. Afebrile. ERMD at bedside.
--- NOTE | 2020-02-17 11:34 | NUR ---
ED Nurse Note: IV line established. Blood and urine specimen collected and sent to lab.
--- NOTE | 2020-02-17 11:40 | Emergency Room Report ---
History of Present Illness General Chief Complaint: Dyspnea/Respdistress Source: Patient, EMS (Chris Kennedy MD) Present Illness HPI Patient is a 59-year-old female who presents after increased difficulty with breathing. Prior history of COPD. Denies any fever. Reports currently being a smoker. Previous history of cocaine abuse per old chart. Reports having increased work of breathing over the past few days. Denies any increased leg swelling. (Chris Kennedy MD) Allergies: Coded Allergies: NO KNOWN ALLERGIES (Unverified Allergy, Unknown, 08/21/15) COVID-19 Screening Contact w/high risk pt: No Recent Travel to affected area: No Experienced COVID-19 symptoms?: Yes COVID-19 symptoms experienced: Shortness of Breath (Chris Kennedy MD) Patient History Past Medical History: see triage record Reviewed Nursing Documentation: PMH: Agreed; PSxH: Agreed (Chris Kennedy MD) Nursing Documentation-PMH Past Medical History: No History, Except For Hx Hypertension: Yes Hx COPD: Yes Hx Cancer: No Hx Dialysis: Yes - Not on dialysis anymore Hx Neurological Problems: No Hx Cerebrovascular Accident: No - BILATERAL HIP PAIN (Chris Kennedy MD) Review of Systems All Other Systems: negative except mentioned in HPI (Chris Kennedy MD) Physical Exam Vital Signs Date Time Temp Pulse Resp B/P (MAP) Pulse Ox O2 Delivery O2 Flow Rate FiO2 02/17/20 11:19 97.7 74 16 188/89 (122) 99 Room Air Sp02 EP Interpretation: reviewed, normal General Appearance: normal inspection, alert, GCS 15 Head: atraumatic ENT: normal ENT inspection, hearing grossly normal, normal voice Neck: normal inspection, full range of motion, supple, no bony tend Respiratory: normal inspection, lungs clear, normal breath sounds, no respiratory distress, no retraction, no wheezing Cardiovascular #1: regular rate, rhythm, no edema Gastrointestinal: normal inspection, normal bowel sounds, non tender, soft, no guarding, no hernia Genitourinary: no CVA tenderness Musculoskeletal: normal inspection, back normal, normal range of motion Neurologic: alert, motor strength/tone normal, composite assembler III-XII nml as tested, oriented x3, responsive, speech normal, normal inspection Psychiatric: normal inspection, judgement/insight normal, mood/affect normal (Chris Kennedy MD) Medical Decision Making Diagnostic Impression: Primary Impression: COPD with exacerbation Additional Impressions: Symptomatic anemia Cocaine abuse Mediastinal adenopathy ER Course Patient presented for shortness of breath. Differential diagnosis include was not limited to pneumonia, pulmonary embolism, COPD exacerbation, anemia among others. Because of complexity of patient's case laboratory tests and imaging studies were ordered. Patient's EKG interpreted by me showed normal sinus rhythm with a rate of [address] changes. There was noted to be some nonspecific ST depression may be related to the patient's recent substance abuse. Urine drug screen was noted to be positive for cocaine. D-dimer was also positive. Patient was endorsed to Dr. Weston pending CT imaging. Patient does not appear to be in any acute distress. Laboratory Tests Test 02/17/20 11:50 White Blood Count 7.6 K/UL (4.8-10.8) Red Blood Count 3.01 M/UL (4.20-5.40) L Hemoglobin 7.0 G/DL (12.0-16.0) L Hematocrit 22.6 % (37.0-47.0) L Mean Corpuscular Volume 75 FL (80-99) L Mean Corpuscular Hemoglobin 23.2 PG (27.0-31.0) L Mean Corpuscular Hemoglobin Concent 30.8 G/DL (32.0-36.0) L Red Cell Distribution Width 15.7 % (11.6-14.8) H Platelet Count 266 K/UL (150-450) Mean Platelet Volume 6.1 FL (6.5-10.1) L Neutrophils (%) (Auto) % (45.0-75.0) Lymphocytes (%) (Auto) % (20.0-45.0) Monocytes (%) (Auto) % (1.0-10.0) Eosinophils (%) (Auto) % (0.0-3.0) Basophils (%) (Auto) % (0.0-2.0) Differential Total Cells Counted 100 Neutrophils % (Manual) 80 % (45-75) H Lymphocytes % (Manual) 9 % (20-45) L Monocytes % (Manual) 7 % (1-10) Eosinophils % (Manual) 2 % (0-3) Basophils % (Manual) 2 % (0-2) Band Neutrophils 0 % (0-8) Platelet Estimate Adequate Platelet Morphology Normal Hypochromasia 3+ Anisocytosis 1+ Microcytosis 1+ D-Dimer 5.13 mg/L FEU (0.00-0.49) H Urine Color Pale yellow Urine Appearance Clear Urine pH 7 (4.5-8.0) Urine Specific [place] 1.010 (1.005-1.035) Urine Protein 1+ (NEGATIVE) H Urine Glucose (UA) Negative (NEGATIVE) Urine Ketones Negative (NEGATIVE) Urine Blood Negative (NEGATIVE) Urine Nitrite Negative (NEGATIVE) Urine Bilirubin Negative (NEGATIVE) Urine Urobilinogen Normal MG/DL (0.0-1.0) Urine Leukocyte Esterase 1+ (NEGATIVE) H Urine RBC 0-2 /HPF (0 - 2) Urine WBC 2-4 /HPF (0 - 2) Urine Squamous Epithelial Cells Occasional /LPF Urine Bacteria Occasional /HPF (NONE) Sodium Level 145 MMOL/L (136-145) Potassium Level 3.1 MMOL/L (3.5-5.1) L Chloride Level 106 MMOL/L (98-107) Carbon Dioxide Level 25 MMOL/L (21-32) Anion Gap 14 mmol/L (5-15) Blood Urea Nitrogen 15 mg/dL (7-18) Creatinine 0.6 MG/DL (0.55-1.30) Estimated Glomerular Filtration Rate > 60 mL/min (>60) Glucose Level 109 MG/DL (74-106) H Lactic Acid Level 1.00 mmol/L (0.4-2.0) Calcium Level 8.4 MG/DL (8.5-10.1) L Total Bilirubin 0.4 MG/DL (0.2-1.0) Aspartate Amino Transferase (AST) 40 U/L (15-37) H Alanine Aminotransferase (ALT) 42 U/L (12-78) Alkaline Phosphatase 112 U/L (46-116) Troponin I 0.015 ng/mL (0.000-0.056) Pro-B-Type Natriuretic Peptide 503 pg/mL (0-125) H Total Protein 7.6 G/DL (6.4-8.2) Albumin 4.0 G/DL (3.4-5.0) Globulin 3.6 g/dL Albumin/Globulin Ratio 1.1 (1.0-2.7) Urine Opiates Screen Negative (NEGATIVE) Urine Barbiturates Screen Negative (NEGATIVE) Phencyclidine (PCP) Screen Negative (NEGATIVE) Urine Amphetamines Screen Negative (NEGATIVE) Urine Benzodiazepines Screen Negative (NEGATIVE) Urine Cocaine Screen Positive (NEGATIVE) H Urine Marijuana (THC) Screen Negative (NEGATIVE) (Chris Kennedy MD) ER Course Briefly, this is a 59-year-old female presenting for shortness of breath wheezing in the setting of recent cocaine abuse. Patient found to be anemic, hypokalemic. At the time of signout we are awaiting CTA to rule out PE/ dissection due to elevated dimer. CTA finds no evidence of PE or dissection, no infiltrates but there is sign of cardiomegaly with congestive heart failure as well as mediastinal adenopathy. Patient reports feeling short of breath and wheezy when she stands up and ambulates to use the bathroom. Will transfer to [facility], for symptomatic anemia. Accepting physician is Dr. Montenegro. Patient stable for transfer (Cesar Weston MD) CT/MRI/US Diagnostic Results CT/MRI/US Diagnostic Results : Impression Final Report EXAM: CT Angiography Chest With Intravenous Contrast CLINICAL HISTORY: SOB TECHNIQUE: Axial computed tomographic angiography images of the chest with intravenous contrast. CTDI is 80.1 mGy and DLP is 438 mGy-cm. One or more of the following dose reduction techniques were used: automated exposure control, adjustment of the mA and/or kV according to patient size, use of iterative reconstruction technique. 3D and MIP reconstructed images were created and reviewed. COMPARISON: No relevant prior studies available. FINDINGS: There is no pulmonary embolism. Aortic atherosclerosis. No dissection or other acute syndrome. No aneurysm. The heart is enlarged. There is hepatic venous reflux suggesting right heart dysfunction. Pulmonary interstitial thickening and small right and trace left pleural effusions suggesting pulmonary venous congestion/CHF/left heart failure. Mild mediastinal adenopathy, largest node to the precarinal space measuring 2.1 x 1.5 cm. Correlate for history of malignancy. Incidental note of an azygous lobe, a congenital variant. Small sliding-type hiatal hernia. No acute fracture. IMPRESSION: Cardiomegaly with evidence of heart failure including interstitial thickening and hepatic venous reflux and small pleural effusions. No PE or aortic dissection. Mild mediastinal adenopathy should be correlated for history of malignancy. Radiologist: Finn Boateng M.D. Electronically Signed: 02/17/20 15:13 Study ready at 15:04 and initial results transmitted at 15:13 (Cesar Weston MD) Last Vital Signs Date Time Temp Pulse Resp B/P (MAP) Pulse Ox O2 Delivery O2 Flow Rate FiO2 02/17/20 11:19 97.7 74 16 188/89 (122) 99 Room Air (Chris Kennedy MD) Disposition: SHORT-TERM HOSP Condition: Stable Chris Kennedy MD February 17, 2020 11:40 Cesar Weston MD February 17, 2020 15:22
[2020-02-17 12:16] LABS: HEMATOCRIT 22.6 % (37.0-47.0); MEAN CORPUSCULAR VOLUME 75 FL (80-99); PLATELET COUNT 266 K/UL (150-450); RED BLOOD COUNT 3.01 M/UL (4.20-5.40); RED CELL DISTRIBUTION WIDTH 15.7 % (11.6-14.8); WHITE BLOOD COUNT 7.6 K/UL (4.8-10.8)
[2020-02-17 12:17] LABS: APPEARANCE,URINE CLEAR; BILIRUBIN, URINE NEGATIVE (NEGATIVE); COLOR,URINE PALE YELLOW; GLUCOSE, URINE (UA) NEGATIVE (NEGATIVE); KETONES,URINE NEGATIVE (NEGATIVE); LEUKOCYTE ESTERASE ,URINE 1+ (NEGATIVE); NITRITE,URINE NEGATIVE (NEGATIVE); PH,URINE 7 (4.5-8.0); PROTEIN,URINE 1+ (NEGATIVE); UROBILINOGEN,URINE NORMAL MG/DL (0.0-1.0)
[2020-02-17 12:27] LABS: ANION GAP 14 mmol/L (5-15); BLOOD UREA NITROGEN 15 mg/dL (7-18); CALCIUM 8.4 MG/DL (8.5-10.1); CARBON DIOXIDE 25 MMOL/L (21-32); CHLORIDE 106 MMOL/L (98-107); CREATININE 0.6 MG/DL (0.55-1.30); POTASSIUM 3.1 MMOL/L (3.5-5.1); SODIUM 145 MMOL/L (136-145)
[2020-02-17 12:44] LABS: ALANINE AMINOTRANSFERASE 42 U/L (12-78); ALBUMIN/GLOBULIN RATIO 1.1 (1.0-2.7); ALKALINE PHOSPHATASE 112 U/L (46-116); ASPARTATE AMINO TRANSFERASE 40 U/L (15-37); BILIRUBIN,TOTAL 0.4 MG/DL (0.2-1.0)
[2020-02-17] MEDS ORDERED: Omnipaque 350 100ml vial INJ PRN (13:30)
[2020-02-17 14:00] VITALS: BP 152/79
--- NOTE | 2020-02-17 14:20 | NUR ---
ED Nurse Note: Pt was taken for CT via wc, accompanied by a tech.
--- NOTE | 2020-02-17 14:40 | NUR ---
ED Nurse Note: Pt came back from CT, not in any distress.
--- NOTE | 2020-02-17 15:14 | Diagnostic Imaging Report ---
EXAM: CT Angiography Chest With Intravenous Contrast CLINICAL HISTORY: SOB TECHNIQUE: Axial computed tomographic angiography images of the chest with intravenous contrast. CTDI is 80.1 mGy and DLP is 438 mGy-cm. One or more of the following dose reduction techniques were used: automated exposure control, adjustment of the mA and/or kV according to patient size, use of iterative reconstruction technique. 3D and MIP reconstructed images were created and reviewed. COMPARISON: No relevant prior studies available. FINDINGS: There is no pulmonary embolism. Aortic atherosclerosis. No dissection or other acute syndrome. No aneurysm. The heart is enlarged. There is hepatic venous reflux suggesting right heart dysfunction. Pulmonary interstitial thickening and small right and trace left pleural effusions suggesting pulmonary venous congestion/CHF/left heart failure. Mild mediastinal adenopathy, largest node to the precarinal space measuring 2. 1 x 1.5 cm. Correlate for history of malignancy. Incidental note of an azygous lobe, a congenital variant. Small sliding-type hiatal hernia. No acute fracture. IMPRESSION: Cardiomegaly with evidence of heart failure including interstitial thickening and hepatic venous reflux and small pleural effusions. No PE or aortic dissection. Mild mediastinal adenopathy should be correlated for history of malignancy.
--- NOTE | 2020-02-17 15:50 | NUR ---
ED Nurse Note: Report given to Manish MANCILLA from [facility]
[2020-02-17 17:07] VITALS: BP 151/79
--- NOTE | 2020-02-17 17:07 | NUR ---
ED Nurse Note: Pt cleared by ERMD to be transferred to [facility] Report given to Manish MANCILLA. Pt alert and orientedx4, verbally responisve. Not in any distress. IV line on left hand 22g, R and L foot 20g patent and intact. PT was picked up by 2 EMT via [facility]. Pt left with all the belongings.
== END 2020-02-17 17:07 | disposition short-term general hospital (02) ==
LOC: EDBD 11:25 → EMR 11:59
DX: J44.1 Chronic obstructive pulmonary disease with (acute) exacerbation (principal); D64.9 Anemia, unspecified; F14.10 Cocaine abuse, uncomplicated; R59.0 Localized enlarged lymph nodes; I50.9 Heart failure, unspecified; I11.0 Hypertensive heart disease with heart failure; F17.200 Nicotine dependence, unspecified, uncomplicated; I51.7 Cardiomegaly; I70.0 Atherosclerosis of aorta; J90 Pleural effusion, not elsewhere classified; K44.9 Diaphragmatic hernia without obstruction or gangrene
CPT/HCPCS: 36415; 71275; 80053; 80307; 81001; 83605; 83880; 84484; 85007; 85025; 85379; 87040; Q9967; Z7502; 99285